=== PATIENT | male | born 2000 | race Hispanic/Latino ===

== ENCOUNTER 2020-09-15 22:25 | Emergency (ER) | payer MEDICAID ==
[~2020-09-15] VITALS: Ht 180.3 cm; Wt 103.4 kg
[2020-09-15] MEDS ORDERED: KETOROLAC 60 MG VIAL (30MG/ML) IM ONE (23:00)
[2020-09-15] MEDS ORDERED: KETOROLAC 60 MG VIAL (30MG/ML) ONE (23:00)
[2020-09-15] MEDS ORDERED: NAPR-1180 PO (23:36)
[2020-09-15 23:57] VITALS: BP 154/81
== END 2020-09-16 00:13 | disposition home or self-care (01) ==
LOC: EDH 22:41
DX: S80.01XA Contusion of right knee, initial encounter (principal); S80.11XA Contusion of right lower leg, initial encounter; S80.211A Abrasion, right knee, initial encounter; Z79.899 Other long term (current) drug therapy; W18.39XA Other fall on same level, initial encounter; Y93.89 Activity, other specified; Y92.89 Other specified places as the place of occurrence of the external cause; Y99.8 Other external cause status
CPT/HCPCS: 73562; 73590; 96372; 99284; J1885